=== PATIENT | male | born 1970 | race African-American/Black ===

== ENCOUNTER → 2016-07-23 | Outpatient (CLI) | payer OTHER | LOC: C.OPB 22:33 → C.LAB 22:33 | DX: Z02.83 Encounter for blood-alcohol and blood-drug test (principal) ==

== ENCOUNTER 2016-09-27 11:00 | Emergency (ER) | payer OTHER ==
[~2016-09-27] VITALS: Ht 167.6 cm; Wt 70.1 kg
[2016-09-27 11:01] VITALS: TEMP 36.4; Ht 167.6 cm; Wt 70.1 kg
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
[2016-09-27 11:37] LABS: URINE APPEARANCE CLEAR (CLEAR); URINE BILIRUBIN NEG (NEG); URINE COLOR YELLOW; URINE NITRITE NEG (NEG); URINE SPECIFIC GRAVITY 1.011 (1.000-1.030); UROBILINOGEN NEG (NEG); ZZUR CULT IF INDIC CLEAN CATCH NO
[2016-09-27 11:44] LABS: MANUAL MICROSCOPIC REQUIRED? NO; REVIEW REQ? NO
[2016-09-27 11:49] LABS: BASO % 0.4 %; BASO ABS # 0.02 K/uL (0-0.2); COMPLETE YES; EOS % 1.2 %; HEMATOCRIT 40.8 % (42-52); IG% 0.2 %; LYMPH % 38.9 %; LYMPH ABS # 1.88 K/uL (1.2-3.4); MEAN CELL VOLUME 84.1 fL (80-100); MEAN CORPUSCULAR HEMOGLOBIN 29.5 pg (25-34); MEAN PLATELET VOLUME 9.5 fL (7.4-10.4); MONO % 6.8 %; NEUT % 52.5 %; PLATELET COUNT 320 K/uL (130-400); RED BLOOD COUNT 4.85 M/uL (4.7-6.1); WHITE BLOOD COUNT 4.83 K/uL (4.8-10.8)
[2016-09-27 12:05] LABS: CALCIUM 9.2 mg/dl (8.5-10.1)
[2016-09-27 12:06] LABS: BUN/CREATININE RATIO 7.4 (10-20); CREATININE 1.4 mg/dl (0.60-1.40)
[2016-09-27 12:17] LABS: THYROID STIMULATING HORMONE 1.19 uIu/ml (0.300-4.500)
[2016-09-27 12:17] LABS: BENZODIAZEPINE, URINE NEG (NEG); COCAINE,URINE NEG (NEG); PHENCYCLIDINE, URINE NEG (NEG)
[2016-09-27 12:25] LABS: ACETAMINOPHEN < 2 ug/ml (10-30)
[2016-09-27 14:32] VITALS: BP 151/98; PULSE 62; O2SAT 99
[2016-10-01 14:35] LABS: SYNTHETIC CANNABINOIDS QL URIN NEGATIVE (Negative)
== END 2016-09-27 14:34 ==
LOC: C.EDB 11:01 → C.EDA 14:34
DX: R45.851 Suicidal ideations (principal); Z82.3 Family history of stroke; F12.10 Cannabis abuse, uncomplicated; F32.9 Major depressive disorder, single episode, unspecified; I10 Essential (primary) hypertension; Z86.010 Personal history of colon polyps

== ENCOUNTER 2017-01-20 15:04 | Emergency (ER) | payer SELFPAY ==
[~2017-01-20] VITALS: Ht 167.6 cm; Wt 68.4 kg
[2017-01-20] MEDS ORDERED: LORAZEPAM 1 MG TAB SL STA (15:27)
[2017-01-20] MEDS ORDERED: FAMOTIDINE 20 MG TAB PO STA (15:27)
[2017-01-20 15:32] VITALS: TEMP 37.1; Ht 167.6 cm; Wt 68.4 kg
[2017-01-20 15:33] LABS: BASO % 0.2 %; BASO ABS # 0.01 K/uL (0-0.2); COMPLETE YES; IG% 0.4 %; LYMPH % 36.9 %; LYMPH ABS # 1.88 K/uL (1.2-3.4); MEAN CELL VOLUME 84.3 fL (80-100); MEAN CORPUSCULAR HEMOGLOBIN 31.2 pg (25-34); MEAN PLATELET VOLUME 9.8 fL (7.4-10.4); MONO % 6.1 %; NEUT % 55.4 %; PLATELET COUNT 277 K/uL (130-400); WHITE BLOOD COUNT 5.09 K/uL (4.8-10.8)
[2017-01-20 15:47] LABS: URINE APPEARANCE CLEAR (CLEAR); URINE BILIRUBIN NEG (NEG); URINE COLOR DK YELLOW; URINE NITRITE NEG (NEG); URINE PH 5.5 (4.5-7.5); URINE SPECIFIC GRAVITY 1.019 (1.000-1.030); UROBILINOGEN NEG (NEG)
[2017-01-20 15:51] LABS: MANUAL MICROSCOPIC REQUIRED? NO; REVIEW REQ? NO
[2017-01-20 15:59] LABS: BUN/CREATININE RATIO 7.7 (10-20); CALCIUM 9.1 mg/dl (8.5-10.1); CREATININE 1.6 mg/dl (0.60-1.40); POTASSIUM 4.1 mmol/L (3.5-5.1)
[2017-01-20 16:10] LABS: THYROID STIMULATING HORMONE 0.636 uIu/ml (0.300-4.500)
[2017-01-20 16:15] LABS: BENZODIAZEPINE, URINE NEG (NEG); COCAINE,URINE NEG (NEG); PHENCYCLIDINE, URINE NEG (NEG)
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
[2017-01-20 21:17] VITALS: BP 165/79; PULSE 74; O2SAT 98
== END 2017-01-20 21:21 ==
LOC: EDBD 15:04 → C.EDA 15:05
DX: F39 Unspecified mood [affective] disorder (principal); I10 Essential (primary) hypertension; E11.9 Type 2 diabetes mellitus without complications; F32.9 Major depressive disorder, single episode, unspecified; Z86.010 Personal history of colon polyps; Z98.890 Other specified postprocedural states; Z91.011 Allergy to milk products

== ENCOUNTER 2019-04-20 20:32 | Inpatient (IN) ==
[2019-04-20 21:20] LABS: Appearance Urine Clear (Clear); Bilirubin Urine Negative (Negative); Blood Urine Negative (Negative); Color Urine Yellow; Glucose Urine UA Negative (Negative); Ketones Urine Negative (Negative); Leukocyte Esterase Urine Negative (Negative); Nitrite Urine Negative (Negative); Protein Urine Negative (Negative); Specific Gravity Urine 1.006 (1.000-1.030); Urobilinogen Urine Negative (Negative)
[2019-04-20 21:37] LABS: Amphetamines+Metham, Urine Neg (Neg); Barbiturates, Urine Neg (Neg); Benzodiazepine, Urine Neg (Neg); Cocaine, Urine Neg (Neg); MDMA (Ecstacy), Urine Neg (Neg); Methadone, Urine Neg (Neg); Opiate, Urine Neg (Neg); Phencyclidine, Urine Neg (Neg)
[2019-04-20 21:42] LABS: Hematocrit (blood only) 36.5 % (42-52); Hemoglobin 13.2 g/dL (14.0-18.0); Mean Corpuscular Hemoglobin 31.1 pg (25-34); Mean Corpuscular Hgb Conc 36.2 g/dL (32-36); Mean Corpuscular Volume 85.9 fL (80-100); Mean Platelet Volume 9.8 fL (7.4-10.4); Platelet Count 269 K/uL (130-400); RDW Coefficient of Variation 12.9 % (11.5-14.5); RDW Standard Deviation 40.8 fL (36.4-46.3); Red Blood Count 4.25 M/uL (4.7-6.1); White Blood Count 5.14 K/uL (4.8-10.8)
[2019-04-20 22:01] LABS: Albumin Level 3.6 gm/dl (3.4-5.0); BUN Creatinine Ratio 10.5 (10-20); Calcium 8.6 mg/dl (8.5-10.1); Creatinine Clr Calc Pharmacy 67.4 ml/min; Est GFR (African American) 78.6; Est GFR (Non-African American) 67.8; Potassium 3.8 mmol/L (3.5-5.1)
[2019-04-20 22:10] LABS: Acetaminophen < 2 ug/ml (10-30); Salicylate < 1.7 mg/dl (2.8-20)
[2019-04-20 22:12] LABS: Albumin Globulin Ratio 1.1 (0.9-2); Bilirubin,Total 0.4 mg/dl (0.2-1); Globulin 3.2 gm/dl (2.5-4.0); Thyroid Stimulating Hormone 1.47 uIu/ml (0.300-4.500); Total Protein 6.8 gm/dl (6.4-8.2)
[2019-04-20 22:27] LABS: Basophils # (auto) 0.01 K/uL (0-0.2); Basophils % (auto) 0.2 %; Eosinophils # (auto) 0.05 K/uL (0-0.5); Immature Granulocytes # (auto) 0.01 K/uL (0.00-0.02); Immature Granulocytes % (auto) 0.2 %; Lymphocytes # (auto) 2.61 K/uL (1.2-3.4); Lymphocytes % (auto) 50.8 %; Monocytes # (auto) 0.32 K/uL (0.11-0.59); Monocytes % (auto) 6.2 %; Neutrophils # (auto) 2.14 K/uL (1.4-6.5); Neutrophils % (auto) 41.6 %
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
[2019-04-21] MEDS ORDERED: MAGNESIUM HYDROXIDE SUSP 30 ML UDC PO PRN (02:15)
[2019-04-21] MEDS ORDERED: BISMUTH SUBSALICYLATE PER ML OMNICELL CHARGE PO PRN (02:15)
[2019-04-21] MEDS ORDERED: SODIUM CHLORIDE 0.65% NA SOLN 45 ML (OCEAN) PRN (02:15)
[2019-04-21] MEDS ORDERED: ALUMINUM/MAGNESIUM SUSP 30 ML UDC PO PRN (02:15)
[2019-04-21] MEDS ORDERED: ACETAMINOPHEN 325 MG TAB PO PRN (02:15)
[2019-04-21] MEDS ORDERED: ACETAMINOPHEN 325 MG TAB ONE (02:23)
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
[2019-04-21] MEDS ORDERED: SERTRALINE HCL 50 MG TABLET PO ONE (10:26)
[2019-04-22] MEDS: SERTRALINE HCL 50 MG TABLET PO SCH (09:18)
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
[2019-04-23 07:54] LABS: Estimated Average Glucose 148 mg/dl; Hemoglobin A1C 6.8 % (4.5-5.6)
[2019-04-23] MEDS: SERTRALINE HCL 50 MG TABLET PO SCH (08:59)
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
[2019-04-24] MEDS: SERTRALINE HCL 50 MG TABLET PO SCH (08:52)
--- NOTE | 2019-04-24 09:55 | Discharge Summary ---
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 Medications RF: 0 Discharge Orders: Discharge Order (Routine); Ordered 04/24/19 Ordered By: Keren Hanson Admission Data Admit Date/Time: 04/21/19 01:18 Attending Provider: Izabella Ledezma Admit Provider: Estrella Nolan Primary Care Provider: Oswaldo Solis Other Interventions: Discharge Summary Assessment (RN) Last Done: 04/24/19 11:12 PSY Interdisciplinary Discharge Planning Last Done: 04/24/19 11:14 DC Date/Time DO NOT enter until pt leaves facility: 04/24/19 11:55 Coding Level of Care Code 53651 D/C day mgmt > 30 min Diagnoses Homicidal ideation R45.850 Suicidal ideation R45.851 Depression F33.2 Active/Remission status: currently active Depression Type: major depressive disorder Major depression episode severity: severe Major depression recurrence: recurrent Psychotic features: without psychotic features PTSD (post-traumatic stress disorder) F43.10 Cannabis abuse F12.10 Diabetes E11.9 HTN (hypertension) I10
== END 2019-04-24 11:55 | disposition home or self-care (01) | DRG 885 ==
LOC: ED 20:32 → SUATTDRO 04-21 01:18 → 3S 04-21 01:18

== ENCOUNTER 2022-11-02 04:52 | Observation (INO) ==
[2022-11-02] MEDS ORDERED: NovoLIN-R INSULIN PER UNIT CHARGE IV STA (05:17)
[2022-11-02] MEDS ORDERED: ONDANSETRON INJ 2 MG/ML 2 ML VIAL IV STA (05:17)
[2022-11-02] MEDS ORDERED: SODIUM CHLORIDE 0.9% 1000ML 1,000 ML IV ONE (05:17)
[2022-11-02 05:36] LABS: Basophils # (auto) 0.03 K/uL (0-0.2); Basophils % (auto) 0.3 %; Eosinophils # (auto) 0.02 K/uL (0-0.50); Eosinophils % (auto) 0.2 %; Hematocrit (blood only) 34.7 % (42.0-52.0); Hemoglobin 12.5 g/dl (14.0-18.0); Immature Granulocytes # (auto) 0.03 K/uL (0.01-0.20); Immature Granulocytes % (auto) 0.3 %; Lymphocytes # (auto) 1.36 K/uL (1.2-3.4); Lymphocytes % (auto) 15.4 %; Mean Corpuscular Hemoglobin 29.6 pg (25.0-34.0); Mean Corpuscular Volume 82.2 fL (80.0-100.0); Monocytes # (auto) 0.37 K/uL (0.11-0.59); Monocytes % (auto) 4.2 %; Neutrophils # (auto) 7.01 K/uL (1.40-6.50); Neutrophils % (auto) 79.6 %; Platelet Count 313 K/uL (130-400); RDW Coefficient of Variation 12.1 % (11.5-14.5); RDW Standard Deviation 36.3 fL (36.4-46.3); Red Blood Count 4.22 M/uL (4.70-6.10); White Blood Count 8.82 K/ul (4.8-10.8)
[2022-11-02 05:52] LABS: Albumin Level 3.8 gm/dl (3.4-5.0); Bilirubin,Total 0.4 mg/dl (0.2-1.0); Potassium 4.8 mmol/L (3.5-5.1)
[2022-11-02 06:05] LABS: Albumin Globulin Ratio 1.4 (0.9-2); BUN Creatinine Ratio 15.2 (10-20); Creatinine Clr Calc Pharmacy 52.8 ml/min; Est GFR (African American) 60.2 ml/min; Globulin 2.8 gm/dl (2.5-4.0); Total Protein 6.6 gm/dl (6.0-8.3); Troponin I High Sensitivity 8.4 pg/ml (0-20)
[2022-11-02 06:55] LABS: Appearance Urine Clear (Clear); Bilirubin Urine Negative (Negative); Blood Urine Negative (Negative); Color Urine Yellow; Glucose Urine UA 3+ (Negative); Ketones Urine Negative (Negative); Leukocyte Esterase Urine Negative (Negative); Nitrite Urine Negative (Negative); Protein Urine Negative (Negative); Specific Gravity Urine 1.021 (1.000-1.030); Urobilinogen Urine Negative (Negative); pH Urine 5.5 (4.5-7.5)
--- NOTE | 2022-11-02 07:00 | XRay Report ---
PA CHEST WITH ABDOMINAL SERIES CLINICAL HISTORY: Generalized abdominal pain. FINDINGS: A PA chest radiograph is compared to study dated 01/30/2016. The cardiomediastinal silhouette is unrem arkable. The lungs and pleural spaces are clear. No pneumothorax is seen. The bony thorax is grossly intact. Supine and erect abdominal radiographs are compared to study dated 01/30/2016. There is a nonobstructe d abdominal bowel gas pattern. No evidence of intraperitoneal free air is seen. Moderate fecal retent ion is noted throughout the colon. There are no abnormal abdominal calcifications. The lumbosacral sp ine and bony pelvis appear intact. IMPRESSION: 1. No active disease in the chest. 2. Nonobstructed abdominal bowel gas pattern noting moderate constipation. ACT 112: Negative or not required by law. Electronically signed by: Edward Jose M.D. 11/02/2022 6:58 AM
--- NOTE | 2022-11-02 07:08 | Emergency Department Note ---
Impression & Plan Hyperglycemia due to type 2 diabetes mellitus, Vomiting, Cannabis use disorder, Constipation Admit to the [facility] ED Provider Note NAME: ZENON AREVALO JR AGE: 52 SEX: M ARRIVES VIA: Ambulance INFORMANT: Patient ED PROVIDER(S): Pam Schmid DO CHIEF COMPLAINT: Vomiting PLAN: Disposition: Admit to the [facility] Condition: Guarded MEDICAL DECISION MAKING: This is a 52-year-old male patient who presents to the emergency department with vomiting and constipation. Patient has a history of type 2 diabetes that is uncontrolled. He stopped taking his oral antihyperglycemic's approximately 2 months ago. Patient states that he started vomiting approximately 5 to 6 hours ago after eating brownies that contained marijuana and smoking marijuana. Patient states that he has not had a bowel movement in the past 7 or 8 days which is not unusual for him. Laboratory studies show significant hyperglycemia with blood sugar 462. X-ray is consistent with significant constipation. Sodium is low at 128. Patient's creatinine is elevated at 1.51. Patient appears quite dehydrated on physical exam. He is receiving IV normal saline bolus and drip here in the emergency department and he was bolused with IV insulin. ABG was performed which showed no evidence of acute acidosis but the patient's blood sugar is not well controlled. Patient is still significantly nauseated and not able to drink clear liquids as of yet. I discussed the case with the [facility] and they will evaluate for further management. Triage Nursing notes reviewed and agree with them. External medical records reviewed from the [facility] system Vital Signs: reviewed and remarkable for no significant abnormalities Differential diagnosis: DKA, dehydration, hyperemesis cannabinoid syndrome, medication noncompliance, electrolyte abnormality, UTI, small bowel obstruction ER treatment provided: Cardiac monitoring IV normal saline bolus IV Zofran IV insulin Diagnostics interpreted by me: Cardiac Monitoring: Normal sinus rhythm at 86 Laboratory studies: See below Imaging studies: As per my independent interpretation Obstruction series: No evidence of small bowel obstruction although there was significant colonic fecal retention consistent with constipation HPI: 52/M arrives for evaluation of vomiting. The patient began vomiting approximately 5 to 6 hours ago. He is a diabetic and has not been taking his metformin for the past 2 months. He describes not having a bowel movement for the past 7 or 8 days which is not unusual for him as he suffers from constipation. Patient admits that he ate a brownie which had marijuana in it and had smoked some marijuana a couple of hours ago. The patient has been eating peanut butter and drinking warm water over the past hour. PAST MEDICAL HISTORY:See Below PAST SURGICAL HISTORY:See Below FAMILY HISTORY:See Below SOCIAL HISTORY:See Below HOME MEDICATIONS: None ALLERGIES: See list VITALS:See Below PHYSICAL EXAMINATION: HEENT: Head - normocephalic and atraumatic Pupils are equal, round, and reactive to light. Extraocular eye muscles are intact, and sclera are anicteric. Nose - moist nasal mucosa without discharge. Mouth - extremely dry buccal mucosa. Oropharynx is nonerythematous and there is no tonsillar exudate or edema noted. Neck: Supple; no cervical lymphadenopathy Heart: Regular rate and rhythm. There is a normal S1 and S2 with no murmurs, clicks, or gallops appreciated. Lungs: Clear to auscultation bilaterally with no wheezes, rales, or rhonchi. Abdomen: Soft, completely nontender, nondistended, with good bowel sounds. There are no palpable pulsatile masses or hepatosplenomegaly. There is no gu arding, rigidity, or rebound noted. Extremities: No evidence of cyanosis, clubbing, or edema. There are easily palpable peripheral pulses. Skin: warm and dry with good turgor and no rashes. ED COURSE: Times/Reassessments: The patient was initially evaluated by the medical student. A complete history and physical was performed. An IV lock was initiated and labs were drawn as above. An order was placed for continuous cardiac monitoring. The patient was in a normal sinus rhythm at a rate of 86. He was bolused with IV normal saline solution. He was given a dose of IV Zofran for nausea. He was then bolused with IV insulin. He had an obstruction series performed which showed evidence of constipation. An ABG was performed which showed no evidence of acute acidosis. I discussed the case with the [facility] Hospitalist as the patient remains hyperglycemic and unable to drink clear liquids. Pam Schmid DO Past Med/Surg History Medical History (Updated 11/02/22 @ 19:18 by Pam Schmid DO) Cannabis abuse Depression Diabetes H. pylori infection HTN (hypertension) PTSD (post-traumatic stress disorder) Surgical History History of appendectomy Social History Smoking Status: Current every day smoker Hx Alcohol Use: No Hx Substance Use: Yes Last Used Substance: Days (ago) Preferred Language: Samoan Communication Ability: Effective Permit Specialist Required: No Beliefs That Will Affect Care: None Current Living Situation: Alone Feels Safe at Home: Yes Safety Concerns: Feels Safe At This Time Assistive Devices: Glasses Allergies Allergies Allergy/AdvReac Type Severity Reaction Status Date / Time lactose AdvReac Mild Nausea Verified 11/02/21 01:47 Home Meds Home Medications Medication Instructions Recorded Confirmed No Known Home Medications 11/02/22 11/02/22 Results & Data (ED) Vital Signs Vital Signs - 24 hr 11/02/22 05:16 11/02/22 05:00 11/02/22 05:15 Temperature 36.8 C Temperature Source Oral Pulse Rate 95 H Pulse Rate [Finger] 90 Pulse Rhythm [Finger] Regular Respiratory Rate 18 Respiratory Effort / Characteristics Non-Labored Respiratory Depth Normal Respiratory Pattern Regular Blood Pressure Blood Pressure [Right Arm] 143/90 H Blood Pressure Mean Blood Pressure Mean [Right Arm] 107 Blood Pressure Position [Right Arm] Lying Pulse Oximetry 97 97 Oxygen Delivery Method Room Air Room Air Sepsis Recent Fever Within 48 Hours Sepsis New/Unexplained Change in Mental Status Sepsis Action Taken by Nursing 11/02/22 05:00 11/02/22 05:37 11/02/22 06:00 Temperature Temperature Source Pulse Rate 90 90 Pulse Rate [Finger] Pulse Rhythm [Finger] Respiratory Rate 24 20 Respiratory Effort / Characteristics Respiratory Depth Respiratory Pattern Blood Pressure 157/98 H 156/91 H Blood Pressure [Right Arm] Blood Pressure Mean 109 119 Blood Pressure Mean [Right Arm] Blood Pressure Position [Right Arm] Pulse Oximetry 97 99 99 Oxygen Delivery Method Room Air Room Air Room Air Sepsis Recent Fever Within 48 Hours No Sepsis New/Unexplained Change in Mental Status No Sepsis Action Taken by Nursing No Action Required 11/02/22 06:30 11/02/22 07:00 11/02/22 07:30 Temperature Temperature Source Pulse Rate 93 H 84 95 H Pulse Rate [Finger] Pulse Rhythm [Finger] Respiratory Rate 20 23 27 H Respiratory Effort / Characteristics Respiratory Depth Respiratory Pattern Blood Pressure 178/111 H 147/92 H 160/103 H Blood Pressure [Right Arm] Blood Pressure Mean 133 110 122 Blood Pressure Mean [Right Arm] Blood Pressure Position [Right Arm] Pulse Oximetry 99 99 100 Oxygen Delivery Method Room Air Room Air Room Air Sepsis Recent Fever Within 48 Hours Sepsis New/Unexplained Change in Mental Status Sepsis Action Taken by Nursing Laboratory Data 11/02/22 05:15 11/02/22 05:15 Lab Results 11/02/22 11/02/22 11/02/22 Range/Units 04:57 05:15 05:15 WBC 8.82 (4.8-10.8) K/ul RBC 4.22 L (4.70-6.10) M/uL Hgb 12.5 L (14.0-18.0) g/dl Hct 34.7 L (42.0-52.0) % MCV 82.2 (80.0-100.0) fL MCH 29.6 (25.0-34.0) pg MCHC 36.0 (32.0-36.0) g/dL RDW Std Deviation 36.3 L (36.4-46.3) fL RDW Coeff of Gertrudis 12.1 (11.5-14.5) % Plt Count 313 (130-400) K/uL MPV 10.0 (9.4-12.4) fL Immature Gran % (Auto) 0.3 % Neut % (Auto) 79.6 % Lymph % (Auto) 15.4 % Mitchell % (Auto) 4.2 % Eos % (Auto) 0.2 % Baso % (Auto) 0.3 % Neut # (Auto) 7.01 H (1.40-6.50) K/uL Lymph # (Auto) 1.36 (1.2-3.4) K/uL Mitchell # (Auto) 0.37 (0.11-0.59) K/uL Eos # (Auto) 0.02 (0-0.50) K/uL Baso # (Auto) 0.03 (0-0.2) K/uL Immature Gran # (Auto) 0.03 (0.01-0.20) K/uL ABG pH (7.35-7.45) ABG pCO2 (35-46) mmHg ABG pO2 (80-95) mmHg ABG HCO3 (19-24) mmol/L ABG O2 Saturation (90-95) % ABG Base Excess (-9-1.8) mEq/L Louis Test (Pos) Oxygen Given Sodium 128 L (136-145) mmol/L Potassium 4.8 (3.5-5.1) mmol/L Chloride 95 L (98-107) mmol/L Carbon Dioxide 27 (21-32) mmol/L Anion Gap 6 (3-11) BUN 23 (6-23) mg/dl Creatinine 1.51 H (0.6-1.4) mg/dl Est Cr Clr Drug Dosing 52.8 ml/min Est GFR ( Amer) 60.2 ml/min Est GFR (Non-Af Amer) 52.0 ml/min BUN/Creatinine Ratio 15.2 (10-20) Glucose 462 H* (70-99(Fasting)) mg/dl POC Glucose 489 H* (70-99) mg/dl Calcium 9.0 (8.6-10.3) mg/dl Magnesium 1.7 (1.7-2.4) mg/dl Total Bilirubin 0.4 (0.2-1.0) mg/dl AST 25 (13-39) U/L ALT 28 (7-52) U/L Alkaline Phosphatase 104 (34-104) U/L Troponin I High Sens 8.4 (0-20) pg/ml Total Protein 6.6 (6.0-8.3) gm/dl Albumin 3.8 (3.4-5.0) gm/dl Globulin 2.8 (2.5-4.0) gm/dl Albumin/Globulin Ratio 1.4 (0.9-2) Lipase 9 L (11-82) U/L Urine Color Urine Appearance (Clear) Urine pH (4.5-7.5) Ur Specific [place] (1.000-1.030) Urine Protein (Negative) Urine Glucose (UA) (Negative) Urine Ketones (Negative) Urine Blood (Negative) Urine Nitrite (Negative) Urine Bilirubin (Negative) Urine Urobilinogen (Negative) Ur Leukocyte Esterase (Negative) 11/02/22 11/02/22 11/02/22 Range/Units 06:30 06:43 07:25 WBC (4.8-10.8) K/ul RBC (4.70-6.10) M/uL Hgb (14.0-18.0) g/dl Hct (42.0-52.0) % MCV (80.0-100.0) fL MCH (25.0-34.0) pg MCHC (32.0-36.0) g/dL RDW Std Deviation (36.4-46.3) fL RDW Coeff of Gertrudis (11.5-14.5) % Plt Count (130-400) K/uL MPV (9.4-12.4) fL Immature Gran % (Auto) % Neut % (Auto) % Lymph % (Auto) % Mitchell % (Auto) % Eos % (Auto) % Baso % (Auto) % Neut # (Auto) (1.40-6.50) K/uL Lymph # (Auto) (1.2-3.4) K/uL Mitchell # (Auto) (0.11-0.59) K/uL Eos # (Auto) (0-0.50) K/uL Baso # (Auto) (0-0.2) K/uL Immature Gran # (Auto) (0.01-0.20) K/uL ABG pH 7.39 (7.35-7.45) ABG pCO2 46 (35-46) mmHg ABG pO2 93 (80-95) mmHg ABG HCO3 28 H (19-24) mmol/L ABG O2 Saturation 99.4 H (90-95) % ABG Base Excess 2.2 H (-9-1.8) mEq/L Louis Test POS (Pos) Oxygen Given ROOM AIR Sodium (136-145) mmol/L Potassium (3.5-5.1) mmol/L Chloride (98-107) mmol/L Carbon Dioxide (21-32) mmol/L Anion Gap (3-11) BUN (6-23) mg/dl Creatinine (0.6-1.4) mg/dl Est Cr Clr Drug Dosing ml/min Est GFR ( Amer) ml/min Est GFR (Non-Af Amer) ml/min BUN/Creatinine Ratio (10-20) Glucose (70-99(Fasting)) mg/dl POC Glucose 204 H (70-99) mg/dl Calcium (8.6-10.3) mg/dl Magnesium (1.7-2.4) mg/dl Total Bilirubin (0.2-1.0) mg/dl AST (13-39) U/L ALT (7-52) U/L Alkaline Phosphatase (34-104) U/L Troponin I High Sens (0-20) pg/ml Total Protein (6.0-8.3) gm/dl Albumin (3.4-5.0) gm/dl Globulin (2.5-4.0) gm/dl Albumin/Globulin Ratio (0.9-2) Lipase (11-82) U/L Urine Color Yellow Urine Appearance Clear (Clear) Urine pH 5.5 (4.5-7.5) Ur Specific [place] 1.021 (1.000-1.030) Urine Protein Negative (Negative) Urine Glucose (UA) 3+ H (Negative) Urine Ketones Negative (Negative) Urine Blood Negative (Negative) Urine Nitrite Negative (Negative) Urine Bilirubin Negative (Negative) Urine Urobilinogen Negative (Negative) Ur Leukocyte Esterase Negative (Negative) Administered Medications Heparin Sodium (Porcine) (Heparin Sod 5,000 Unit/0.5 Ml Vial) 5,000 units SQ Q8 SUZETTE Stop: 12/02/22 13:59 Last Admin: 11/02/22 15:55 Dose: Not Given Documented By: JENNIFER Sodium Chloride (Nss 1000ml) 1,000 mls @ 125 mls/hr IV .Q8H [facility] Stop: 12/02/22 17:44 Last Admin: 11/02/22 18:28 Dose: 125 mls/hr Documented By: DARIA Insulin Aspart (Insulin Aspart Per Unit Charge) 0 units SC ACHS [facility]; Protocol Stop: 12/02/22 11:44 Last Admin: 11/02/22 18:28 Dose: 7 units Documented By: DARIA Co-signed By: LINDSEY Admin: 11/02/22 13:11 Dose: 14 units Documented By: JENNIFER Co-signed By: JOEL Insulin Glargine (Lantus Per Unit Charge) 10 units SQ BID [facility]; Protocol Stop: 12/02/22 11:44 Last Admin: 11/02/22 12:03 Dose: 10 units Documented By: JENNIFER Co-signed By: JOEL Polyethylene Glycol (Polyethylene (Miralax) 17 Gm Pack) 17 gm PO BID [facility] Stop: 12/02/22 11:29 Last Admin: 11/02/22 12:02 Dose: 17 gm Documented By: JENNIFER Discontinued Medications Sodium Chloride (Nss 1000ml) 1,000 mls @ 999 mls/hr IV .Q1H1M ONE Stop: 11/02/22 06:17 Last Infusion: 11/02/22 06:50 Dose: 0 mls/hr Documented By: Admin: 11/02/22 05:29 Dose: 999 mls/hr Documented By: COLIN Sodium Chloride (Nss) 500 mls @ 125 mls/hr IV .Q4H SUZETTE Stop: 12/02/22 07:14 Last Admin: 11/02/22 17:36 Dose: Not Given Documented By: Infusion: 11/02/22 17:36 Dose: 0 mls/hr Documented By: Admin: 11/02/22 12:03 Dose: 125 mls/hr Documented By: Infusion: 11/02/22 12:02 Dose: 0 mls/hr Documented By: Admin: 11/02/22 07:28 Dose: 125 mls/hr Documented By: NATASHA Insulin Human Regular (Novolin-R Insulin Per Unit Charge) 10 units IV NOW STA Stop: 11/02/22 05:18 Last Admin: 11/02/22 05:29 Dose: 10 units Documented By: COLIN Co-signed By: DML Magnesium Hydroxide (Magnesium Hydroxide Susp 30 Ml Udc) 30 ml PO NOW ONE Stop: 11/02/22 11:21 Last Admin: 11/02/22 12:01 Dose: 30 ml Documented By: JENNIFER Ondansetron HCl (Ondansetron Inj 2 Mg/Ml 2 Ml Vial) 4 mg IV NOW STA Stop: 11/02/22 05:18 Last Admin: 11/02/22 05:29 Dose: 4 mg Documented By: COLIN Imaging Data Radiologist's Impression: Chest/Abdomen X-ray 11/02/22 05:56 PA CHEST WITH ABDOMINAL SERIES CLINICAL HISTORY: Generalized abdominal pain. FINDINGS: A PA chest radiograph is compared to study dated 01/30/2016. The cardiomediastinal silhouette is unremarkable. The lungs and pleural spaces are clear. No pneumothorax is seen. The bony thorax is grossly intact. Supine and erect abdominal radiographs are compared to study dated 01/30/2016. There is a nonobstructed abdominal bowel gas pattern. No evidence of intraperitoneal free air is seen. Moderate fecal retention is noted throughout the colon. There are no abnormal abdominal calcifications. The lumbosacral spine and bony pelvis appear intact. IMPRESSION: 1. No active disease in the chest. 2. Nonobstructed abdominal bowel gas pattern noting moderate constipation. ACT 112: Negative or not required by law. Electronically signed by: Edward Jose M.D. 11/02/2022 6:58 AM Discharge Plan Visit Data Chief Complaint: Vomiting Stated Complaint: VOMITING/HYPERGLYCEMIC ED Provider: Pam Schmid Discharge Problem: Hyperglycemia due to type 2 diabetes mellitus, Vomiting, Cannabis use disorder, Constipation Patient Disposition: Admitted As Inpatient Discharge Instructions Interventions: ED Discharge Assessment Last Done: 11/02/22 10:59 Hyperglycemia due to type 2 diabetes mellitus Qualifiers: Diabetes mellitus correction insulin use: without correction use Qualified Code(s): E11.65 - Type 2 diabetes mellitus with hyperglycemia Vomiting Qualifiers: Vomiting type: unspecified
[2022-11-02] MEDS: SODIUM CHLORIDE 0.9% 500 ML IV SCH ×3 (07:28→17:36)
[2022-11-02 07:33] LABS: Base Excess ABG 2.2 mEq/L (-9-1.8); HCO3 ABG 28 mmol/L (19-24); Oxygen Saturation ABG 99.4 % (90-95); PCO2 ABG 46 mmHg (35-46); PO2 ABG 93 mmHg (80-95); pH ABG 7.39 (7.35-7.45)
[2022-11-02 07:34] LABS: Allen Test POS (Pos)
[2022-11-02] MEDS ORDERED: GLUCOSE 10 TAB/TUBE PO PRN (11:20)
[2022-11-02] MEDS ORDERED: GLUCAGON FOR INJ 1 MG VIAL SQ PRN (11:20)
[2022-11-02] MEDS ORDERED: PHARMACY GLYCEMIC MGMT CONSULT PRN (11:20)
[2022-11-02] MEDS ORDERED: CARBOHYDRATES FOR HYPOGLYCEMIA PO PRN (11:20)
[2022-11-02] MEDS ORDERED: DEXTROSE 50% 50 ML SYRINGE IV PRN (11:20)
[2022-11-02] MEDS ORDERED: MAGNESIUM HYDROXIDE SUSP 30 ML UDC PO ONE (11:20)
[2022-11-02] MEDS ORDERED: GLUCOSE 40% GEL 15 GM TUBE PO PRN (11:20)
[2022-11-02] MEDS ORDERED: ONDANSETRON INJ 2 MG/ML 2 ML VIAL IV PRN (11:20)
[2022-11-02 11:59] LABS: Magnesium 1.7 mg/dl (1.7-2.4)
[2022-11-02] MEDS: POLYETHYLENE (MIRALAX) 17 GM PACK PO SCH ×2 (12:02→21:18)
[2022-11-02] MEDS: LANTUS PER UNIT CHARGE SQ SCH ×2 (12:03→21:18)
--- NOTE | 2022-11-02 12:18 | Pharmacy Report ---
Pharmacy Glycemic Short Note 2 - Date of Service November 02, 2022 - Glycemic Short BSG Results (Last 24 hours): 11/02/22 11/02/22 11/02/22 04:57 05:15 06:43 Glucose 462 H* POC Glucose 489 H* 204 H 11/02/22 11:53 Glucose POC Glucose 295 H OUTPATIENT ANTIDIABETIC REGIMEN: * Metformin ER 500 mg PO BIDM * Jardiance 25 mg PO AM * HbA1c pending * Last was 9.8% in May of 2021 per [facility] records ASSESSMENT: * 52 yo M admitted on 11/02/22 secondary to vomiting and constipation. Pharmacy has been consulted to assist with inpatient glycemic management. Patient is a poorly controlled Type 2 diabetic as an outpatient. Please refer to outpatient regimen and most recent HbA1c above. * Upon arrival to ED, BSG was 489 mg/dL. Suspect noncompliance with all outpatient medications including antidiabetics. BSG improved to 204 mg/dL with the administration of 10 units IV insulin. However, BSG back up to 295 mg/dL upon transfer to the floor. early childhood educator aide has been consulted. * Will start Lantus at ~0.3 units/kg/day to start. Novolog will be started based on weight/stress of 3. PLAN FOR INPATIENT GLYCEMIC CONTROL: * Hold outpatient oral diabetes medications * Basal insulin * Lantus 10 units SC BID * Bolus insulin * NovoLog per scale ACHS * Goal Range: Low 110 mg/dL - High 140 mg/dL * Correction Factor: 25 mg/dL/unit * Nutritional / Prandial insulin per carb ratio of 1 unit per 8 grams CHO consumed
[2022-11-02] MEDS: INSULIN ASPART PER UNIT CHARGE SC SCH ×3 (13:11→21:04)
--- NOTE | 2022-11-02 14:47 | History & Physical Report ---
Date of Service November 02, 2022 Assessment & Plan (1) Gastroenteritis: (2) Type 2 diabetes mellitus: (3) Constipation: Plan: Past medical history of type 2 diabetes mellitus (last A1c of 9.8% in May 2021), hypertension, chronic idiopathic constipation, gastroparesis, hemorrhoids. Noncompliant with medication Patient presents to the ED nausea and vomiting starting today. Patient reports that he made homemade brownies infused with marijuana and he started to have nausea, vomiting. Vomitus contained food particles; denies any blood. Lab work was remarkable for hyperglycemia with blood glucose of 462 and creatinine of 1.51. Sodium was 128, corrected sodium of 134. Abdominal x-ray showed nonobstructive bowel gas pattern with moderate constipation. Supportive care with IV hydration, Zofran Started on enema, MiraLAX twice daily and milk of magnesia for bowel regimen On glargine and NovoLog for type 2 diabetes mellitus. Obtain A1c in a.m. health educator (4) Acute kidney injury superimposed on CKD: Plan: Creatinine of 1.51 on admission; baseline around 1.2-1.3 Need to rule out progressive CKD versus IVON on CKD Repeat BMP tomorrow a.m., continue IV hydration Obtain urinalysis, protein creatinine ratio Plan DVT prophylaxis heparin DispoHome after resolution of medical issues Time spent evaluating patient, direct bedside care, chart review, placing orders, interpretation of diagnostic studies, discussion with consultants, patient, and family members, as well as other required patient management activities is 88 minutes Please note the above document was generated using voice recognition software. It may contain grammatical, syntax or spelling errors. Any formal questions or concerns about the content, text or information contained within the body of this dictation should be directly addressed to the provider for clarification Admission and Anticipated Discharge Date Admission Date: November 02, 2022 History of Present Illness Chief Complaint: Nausea vomiting for 1 day Primary Care Provider: Oswaldo Solis MD History obtained from chart review and interview with the patient. Past medical history of type 2 diabetes mellitus (last A1c of 9.8% in May 2021), hypertension, chronic idiopathic constipation, gastroparesis, hemorrhoids. Noncompliant with medication Patient presents to the ED nausea and vomiting starting today. Patient reports that he made homemade brownies infused with marijuana and he started to have nausea, vomiting. Vomitus contained food particles; denies any blood. He also reports constipation; reports his last bowel movement is 7 days ago. Reports that he requires enema for the constipation. He reports that he stopped taking medications several months ago. He reports that he used to be on Jardiance and metformin. Also, on lisinopril 10 mg for hypertension. On presentation to the ED, patient was afebrile, normotensive and saturating well on room air. Lab work was remarkable for hyperglycemia with blood glucose of 462 and creatinine of 1.51. Sodium was 128, corrected sodium of 134. Patient was given IV insulin 10 units, Zofran and IV fluids. Abdominal x-ray showed nonobstructive bowel gas pattern with moderate constipation. Past medical history; as above Surgical history; last colonoscopy in 2021; no polyps. Repeat in 2024. Family history; mother with diabetes, hypertension. Denies alcohol use, smoking. Uses marijuana Allergies Allergy/AdvReac Type Severity Reaction Status Date / Time lactose AdvReac Mild Nausea Verified 11/02/21 01:47 Home Medications Medication Instructions Recorded Confirmed Type No Known Home Medications 11/02/22 11/02/22 History Past Med/Surg History Medical History (Updated 11/02/22 @ 14:54 by Fili Cbeallos MD) Cannabis abuse Depression Diabetes H. 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 Normal insp/exp effort, no accessory muscle use Cardiovascular: RRR, no murmur, no edema Vessels: no JVD or carotid bruit Chest: normal inspection of chest Abdomen: Slightly distended, nontender. Bowel sounds are present Musculoskeletal: no cyanosis or clubbing, extremities motor strength 5/5 Skin: no rashes, warm and dry normal turgor Neurologic: PERRL, EOMI, accommodation nl, no face palsy, no dysarthria CN's II- XI intact bilaterally and moves all extremities Psychiatric: A+Ox3, euthymic affect Results & Data Results & Data Vital Signs (Past 12 Hours) Vital Signs Temp Pulse Pulse Resp BP BP Pulse Ox 11/02/22 11:20 36.5 C 53 L 16 117/75 99 11/02/22 10:50 72 18 132/80 97 11/02/22 09:30 66 19 127/80 96 11/02/22 09:00 80 21 126/72 96 11/02/22 09:03 74 11/02/22 08:30 82 20 121/71 100 11/02/22 08:00 77 21 146/97 H 100 11/02/22 07:30 95 H 27 H 160/103 H 100 11/02/22 07:00 84 23 147/92 H 99 11/02/22 06:30 93 H 20 178/111 H 99 11/02/22 06:00 90 20 156/91 H 99 11/02/22 05:37 90 24 157/98 H 99 11/02/22 05:00 97 11/02/22 05:15 97 11/02/22 05:00 36.8 C 90 18 143/90 H 97 11/02/22 05:16 95 H O2 Del Method 11/02/22 11:20 Room Air 11/02/22 10:50 Room Air 11/02/22 09:30 Room Air 11/02/22 09:00 Room Air 11/02/22 09:03 11/02/22 08:30 Room Air 11/02/22 08:00 Room Air 11/02/22 07:30 Room Air 11/02/22 07:00 Room Air 11/02/22 06:30 Room Air 11/02/22 06:00 Room Air 11/02/22 05:37 Room Air 11/02/22 05:00 Room Air 11/02/22 05:15 Room Air 11/02/22 05:00 Room Air 11/02/22 05:16 Laboratory Results Laboratory Results WBC 8.82 K/ul (4.8-10.8) 11/02/22 05:15 RBC 4.22 M/uL (4.70-6.10) L 11/02/22 05:15 Hgb 12.5 g/dl (14.0-18.0) L 11/02/22 05:15 Hct 34.7 % (42.0-52.0) L 11/02/22 05:15 MCV 82.2 fL (80.0-100.0) 11/02/22 05:15 MCH 29.6 pg (25.0-34.0) 11/02/22 05:15 MCHC 36.0 g/dL (32.0-36.0) 11/02/22 05:15 RDW Std Deviation 36.3 fL (36.4-46.3) L 11/02/22 05:15 RDW Coeff of Gertrudis 12.1 % (11.5-14.5) 11/02/22 05:15 Plt Count 313 K/uL (130-400) 11/02/22 05:15 MPV 10.0 fL (9.4-12.4) 11/02/22 05:15 Immature Gran % (Auto) 0.3 % 11/02/22 05:15 Neut % (Auto) 79.6 % 11/02/22 05:15 Lymph % (Auto) 15.4 % 11/02/22 05:15 [place] % (Auto) 4.2 % 11/02/22 05:15 Eos % (Auto) 0.2 % 11/02/22 05:15 Baso % (Auto) 0.3 % 11/02/22 05:15 Neut # (Auto) 7.01 K/uL (1.40-6.50) H 11/02/22 05:15 Lymph # (Auto) 1.36 K/uL (1.2-3.4) 11/02/22 05:15 [place] # (Auto) 0.37 K/uL (0.11-0.59) 11/02/22 05:15 Eos # (Auto) 0.02 K/uL (0-0.50) 11/02/22 05:15 Baso # (Auto) 0.03 K/uL (0-0.2) 11/02/22 05:15 Immature Gran # (Auto) 0.03 K/uL (0.01-0.20) 11/02/22 05:15 ABG pH 7.39 (7.35-7.45) 11/02/22 07:25 ABG pCO2 46 mmHg (35-46) 11/02/22 07:25 ABG pO2 93 mmHg (80-95) 11/02/22 07:25 ABG HCO3 28 mmol/L (19-24) H 11/02/22 07:25 ABG O2 Saturation 99.4 % (90-95) H 11/02/22 07:25 ABG Base Excess 2.2 mEq/L (-9-1.8) H 11/02/22 07:25 Louis Test POS (Pos) 11/02/22 07:25 Oxygen Given ROOM AIR 11/02/22 07:25 Sodium 128 mmol/L (136-145) L 11/02/22 05:15 Potassium 4.8 mmol/L (3.5-5.1) 11/02/22 05:15 Chloride 95 mmol/L (98-107) L 11/02/22 05:15 Carbon Dioxide 27 mmol/L (21-32) 11/02/22 05:15 Anion Gap 6 (3-11) 11/02/22 05:15 BUN 23 mg/dl (6-23) 11/02/22 05:15 Creatinine 1.51 mg/dl (0.6-1.4) H 11/02/22 05:15 Est Cr Clr Drug Dosing 52.8 ml/min 11/02/22 05:15 Est GFR ( Amer) 60.2 ml/min 11/02/22 05:15 Est GFR (Non-Af Amer) 52.0 ml/min 11/02/22 05:15 BUN/Creatinine Ratio 15.2 (10-20) 11/02/22 05:15 Glucose 462 mg/dl (70-99(Fasting)) H* 11/02/22 05:15 POC Glucose 295 mg/dl (70-99) H 11/02/22 11:53 Calcium 9.0 mg/dl (8.6-10.3) 11/02/22 05:15 Magnesium 1.7 mg/dl (1.7-2.4) 11/02/22 05:15 Total Bilirubin 0.4 mg/dl (0.2-1.0) 11/02/22 05:15 AST 25 U/L (13-39) 11/02/22 05:15 ALT 28 U/L (7-52) 11/02/22 05:15 Alkaline Phosphatase 104 U/L (34-104) 11/02/22 05:15 Troponin I High Sens 8.4 pg/ml (0-20) 11/02/22 05:15 Total Protein 6.6 gm/dl (6.0-8.3) 11/02/22 05:15 Albumin 3.8 gm/dl (3.4-5.0) 11/02/22 05:15 Globulin 2.8 gm/dl (2.5-4.0) 11/02/22 05:15 Albumin/Globulin Ratio 1.4 (0.9-2) 11/02/22 05:15 Lipase 9 U/L (11-82) L 11/02/22 05:15 Urine Color Yellow 11/02/22 06:30 Urine Appearance Clear (Clear) 11/02/22 06:30 Urine pH 5.5 (4.5-7.5) 11/02/22 06:30 Ur Specific [place] 1.021 (1.000-1.030) 11/02/22 06:30 Urine Protein Negative (Negative) 11/02/22 06:30 Urine Glucose (UA) 3+ (Negative) H 11/02/22 06:30 Urine Ketones Negative (Negative) 11/02/22 06:30 Urine Blood Negative (Negative) 11/02/22 06:30 Urine Nitrite Negative (Negative) 11/02/22 06:30 Urine Bilirubin Negative (Negative) 11/02/22 06:30 Urine Urobilinogen Negative (Negative) 11/02/22 06:30 Ur Leukocyte Esterase Negative (Negative) 11/02/22 06:30 SARS-CoV-2, RNA, NAAT NEGATIVE (NEGATIVE) 11/02/22 08:43 Impressions Chest/Abdomen X-ray 11/02/22 05:56 PA CHEST WITH ABDOMINAL SERIES CLINICAL HISTORY: Generalized abdominal pain. FINDINGS: A PA chest radiograph is compared to study dated 01/30/2016. The cardiomediastinal silhouette is unremarkable. The lungs and pleural spaces are clear. No pneumothorax is seen. The bony thorax is grossly intact. Supine and erect abdominal radiographs are compared to study dated 01/30/2016. There is a nonobstructed abdominal bowel gas pattern. No evidence of intraperitoneal free air is seen. Moderate fecal retention is noted throughout the colon. There are no abnormal abdominal calcifications. The lumbosacral spine and bony pelvis appear intact. IMPRESSION: 1. No active disease in the chest. 2. Nonobstructed abdominal bowel gas pattern noting moderate constipation. ACT 112: Negative or not required by law. Electronically signed by: Edward Jose M.D. 11/02/2022 6:58 AM Code Status & VTE Plan VTE Prophylaxis Plan VTE Prophylaxis will be ordered: Yes
[2022-11-02] MEDS: HEPARIN SOD 5,000 UNIT/0.5 ML VIAL SQ SCH ×2 (15:55→21:18)
[2022-11-02 17:07] LABS: Appearance Urine Clear (Clear); Bilirubin Urine Negative (Negative); Blood Urine Negative (Negative); Color Urine Yellow; Glucose Urine UA 3+ (Negative); Ketones Urine Negative (Negative); Leukocyte Esterase Urine Negative (Negative); Nitrite Urine Negative (Negative); Protein Urine Negative (Negative); Urobilinogen Urine Negative (Negative); pH Urine 6.5 (4.5-7.5)
[2022-11-02 18:03] LABS: Total Protein Urine Random < 4.0 mg/dl (0-11.9)
[2022-11-02 18:19] LABS: Creatinine Urine Random 39.7 mg/dl
[2022-11-02] MEDS: SODIUM CHLORIDE 0.9% 1000ML 1,000 ML IV SCH (18:28)
[2022-11-02] MEDS ORDERED: Nursing to Pharmacy Communication SCH (22:30)
[2022-11-03] MEDS: SODIUM CHLORIDE 0.9% 1000ML 1,000 ML IV SCH (02:10)
[2022-11-03] MEDS: HEPARIN SOD 5,000 UNIT/0.5 ML VIAL SQ SCH ×2 (05:24→14:24)
[2022-11-03 06:56] LABS: Basophils # (auto) 0.05 K/uL (0-0.2); Basophils % (auto) 0.7 %; Eosinophils % (auto) 1.4 %; Estimated Average Glucose 283 mg/dl; Hematocrit (blood only) 33.1 % (42.0-52.0); Hemoglobin 11.4 g/dl (14.0-18.0); Hemoglobin A1C 11.5 % (4.5-5.6); Immature Granulocytes # (auto) 0.01 K/uL (0.01-0.20); Immature Granulocytes % (auto) 0.1 %; Lymphocytes # (auto) 2.95 K/uL (1.2-3.4); Lymphocytes % (auto) 40.8 %; Mean Corpuscular Hgb Conc 34.4 g/dL (32.0-36.0); Mean Corpuscular Volume 84.2 fL (80.0-100.0); Mean Platelet Volume 9.9 fL (9.4-12.4); Monocytes % (auto) 5.5 %; Neutrophils # (auto) 3.72 K/uL (1.40-6.50); Neutrophils % (auto) 51.5 %; Platelet Count 292 K/uL (130-400); RDW Coefficient of Variation 12.4 % (11.5-14.5); RDW Standard Deviation 37.7 fL (36.4-46.3); Red Blood Count 3.93 M/uL (4.70-6.10); White Blood Count 7.23 K/ul (4.8-10.8)
[2022-11-03 07:11] LABS: Albumin Globulin Ratio 1.5 (0.9-2); Albumin Level 3.1 gm/dl (3.4-5.0); BUN Creatinine Ratio 12.7 (10-20); Bilirubin,Total 0.4 mg/dl (0.2-1.0); Calcium 8.3 mg/dl (8.6-10.3); Creatinine Clr Calc Pharmacy 53.2 ml/min; Est GFR (African American) 60.7 ml/min; Est GFR (Non-African American) 52.4 ml/min; Globulin 2.1 gm/dl (2.5-4.0); Potassium 3.9 mmol/L (3.5-5.1); Total Protein 5.2 gm/dl (6.0-8.3)
[2022-11-03] MEDS: INSULIN ASPART PER UNIT CHARGE SC SCH ×2 (08:40→12:47)
[2022-11-03] MEDS: POLYETHYLENE (MIRALAX) 17 GM PACK PO SCH (08:47)
[2022-11-03] MEDS ORDERED: LANTUS PER UNIT CHARGE SC SCH (09:00)
--- NOTE | 2022-11-03 10:01 | Pharmacy Report ---
Pharmacy Glycemic Short Note 2 - Date of Service November 03, 2022 - Glycemic Short BSG Results (Last 24 hours): 11/02/22 11/02/22 11/02/22 11:53 17:12 17:14 Glucose POC Glucose 295 H 69 L* 78 11/02/22 11/03/22 11/03/22 20:29 06:23 08:01 Glucose 82 POC Glucose 127 H 79 OUTPATIENT ANTIDIABETIC REGIMEN: * Metformin ER 500 mg PO BIDM * Jardiance 25 mg PO AM * HbA1c pending * Last was 9.8% in May of 2021 per [facility] records ASSESSMENT: 11/03: * Patient received 51 units of insulin yesterday, 20 units basal + 31 units bolus. BSGs ranged from 78 - 489 mg/dL. * Fasting BSG low this AM at 79 mg/dL. Will hold any further basal insulin this morning and monitor BSGs throughout the day. May need a small dose at bedtime. * Also loosened Novolog parameters given significant trend down in postprandial BSG yesterday. Stressors remain stable. 11/02: * 52 yo M admitted on 11/02/22 secondary to vomiting and constipation. Pharmacy has been consulted to assist with inpatient glycemic management. Patient is a poorly controlled Type 2 diabetic as an outpatient. Please refer to outpatient regimen and most recent HbA1c above. * Upon arrival to ED, BSG was 489 mg/dL. Suspect noncompliance with all outpatient medications including antidiabetics. BSG improved to 204 mg/dL with the administration of 10 units IV insulin. However, BSG back up to 295 mg/dL upon transfer to the floor. binder roller has been consulted. * Will start Lantus at ~0.3 units/kg/day to start. Novolog will be started based on weight/stress of 3. PLAN FOR INPATIENT GLYCEMIC CONTROL: * Hold outpatient oral diabetes medications * Basal insulin * Hold * May need a small HS dose tonight - if so, recommend 10 units * Bolus insulin * NovoLog per scale ACHS * Goal Range: Low 110 mg/dL - High 140 mg/dL * Correction Factor: 30 mg/dL/unit * Nutritional / Prandial insulin per carb ratio of 1 unit per 10 grams CHO consumed
--- NOTE | 2022-11-03 15:04 | Discharge Summary ---
Date of Service November 03, 2022 Admission HPI Per Admitting Provider History obtained from chart review and interview with the patient. Past medical history of type 2 diabetes mellitus (last A1c of 9.8% in May 2021), hypertension, chronic idiopathic constipation, gastroparesis, hemo rrhoids. Noncompliant with medication Patient presents to the ED nausea and vomiting starting today. Patient reports that he made homemade brownies infused with marijuana and he started to have nausea, vomiting. Vomitus contained food particles; denies any blood. He also reports constipation; reports his last bowel movement is 7 days ago. Reports that he requires enema for the constipation. He reports that he stopped taking medications several months ago. He reports that he used to be on Jardiance and metformin. Also, on lisinopril 10 mg for hypertension. On presentation to the ED, patient was afebrile, normotensive and saturating well on room air. Lab work was remarkable for hyperglycemia with blood glucose of 462 and creatinine of 1.51. Sodium was 128, corrected sodium of 134. Patient was given IV insulin 10 units, Zofran and IV fluids. Abdominal x-ray showed nonobstructive bowel gas pattern with moderate constipation. Past medical history; as above Surgical history; last colonoscopy in 2021; no polyps. Repeat in 2024. Family history; mother with diabetes, hypertension. Denies alcohol use, smoking. Uses marijuana Principal Diagnosis (1) Gastroenteritis: (2) Type 2 diabetes mellitus: (3) Constipation (4) Acute kidney injury superimposed on CKD: Discharge Exam Constitutional: WD/WN, vitals as above, NAD, sitting up in bed, pleasant, conversing easily Respiratory: normal respiratory effort, lungs clear to auscultation, no wheeze, rales, rhonchi. Normal insp/exp effort, no accessory muscle use Cardiovascular: RRR, no murmur, no edema Vessels: no JVD or carotid bruit Chest: normal inspection of chest Abdomen: Slightly distended, nontender. Bowel sounds are present Musculoskeletal: no cyanosis or clubbing, extremities motor strength 5/5 Skin: no rashes, warm and dry normal turgor Neurologic: PERRL, EOMI, accommodation nl, no face palsy, no dysarthria CN's II-XI intact bilaterally and moves all extremities Psychiatric: A+Ox3, euthymic affect Discharge Data Allergies Allergy/AdvReac Type Severity Reaction Status Date / Time lactose AdvReac Mild Nausea Verified 11/02/21 01:47 Consultations 11/02/22 07:33 ED Decision to Admit Stat Hospital Course (1) Gastroenteritis: (2) Type 2 diabetes mellitus: (3) Constipation: (4) Acute kidney injury superimposed on CKD: Plan Past medical history of type 2 diabetes mellitus (last A1c of 9.8% in May 2021), hypertension, chronic idiopathic constipation, gastroparesis, hemorrhoi ds. Noncompliant with medication Patient presents to the ED nausea and vomiting starting today. Patient reports that he made homemade brownies infused with marijuana and he started to have nausea, vomiting. Vomitus contained food particles; denies any blood. Lab work was remarkable for hyperglycemia with blood glucose of 462 and creatinine of 1.51. Sodium was 128, corrected sodium of 134. Abdominal x-ray showed nonobstructive bowel gas pattern with moderate constipation. He was admitted to medical floor. He was started on subcu insulin with NovoLog and Lantus. He was also given IV hydration for presumed IVON on CKD. Also, started on enema and MiraLAX. Patient's blood glucose improved during the hospitalization. HbA1c was 11.5. Diabetic education was done. Patient was discharged home on Tresiba 10 units once a day and Jardiance. Patient's creatinine was 1.51 at discharge; similar to admission. This is likely due to progressive CKD. Patient was asked to follow-up with his primary care doctor. Please note the above document was generated using voice recognition software. It may contain grammatical, syntax or spelling errors. Any formal questions or concerns about the content, text or information contained within the body of this dictation should be directly addressed to the provider for clarification Total Time Total Time Spent Total Time Spent (In Minutes): 45 Total Time Includes: Examination of the Patient, Discharge Planning, Medication Reconciliation, Communication With Other Providers and Other Discharge Plan Discharge Items Patient Disposition: Home - Self-Care Reason For Visit: HYPERGLYCEMIA, GASTROENTERITIS Discharge Diagnosis: Uncontrolled type 2 diabetes mellitus Gastroenteritis Activity: Resume your previous activity Non-emergency contact: Primary Care Provider Call non-emergency contact if: you have any medication questions and your symptoms worsen Follow-up/Referrals: Oswaldo Solis MD [Primary Care Provider] - (Date & Time 11/09/2022 10:20 AM Provider Oswaldo Solis MD Department [facility] ) Diet: Carb Consistent or DM2 Addtl Attending Provider Instructions: You are admitted to the hospital with uncontrolled type 2 diabetes mellitus. Your A1c was 11.5 You are prescribed Tresiba 10 units once a day. Please check fasting blood glucose every day in the morning. If your fasting blood glucose is greater than 130, please increase the dose of Tresiba by 2 units every 2 to 3 days. If your fasting blood glucose is less than 90, decrease dose of Tresiba by 2 units. You are also prescribed Jardiance 25 mg to be taken once daily. Please follow carb controlled diet. Please follow-up with your primary care doctor as scheduled. Pending Studies at Discharge: No Stand-Alone Forms: My [employer], Smoking Cessation Medications and DC Order Prescriptions: New Jardiance 25 mg tablet 25 mg PO DAILY Qty: 30 0RF (DME) pen needle, diabetic [Pen Needle] 32 gauge x 5/32" needle See Rx Instructions .Route Qty: 100 0RF Rx Instructions: As directed insulin degludec [Tresiba FlexTouch U-100] 100 unit/mL (3 mL) insulin pen 10 unit subcut DAILY Qty: 15 0RF Discharge Orders: Discharge Order (Routine); Ordered 11/03/22 Ordered By: Fili Luna/Other Patient Handouts: Insulin How To Use Where Inject Admission Data Admit Date/Time: 11/02/22 07:52 Attending Provider: Fili Ceballos Admit Provider: Fili Ceballos Primary Care Provider: Oswaldo Solis Other Providers: Fili Ceballos Other Interventions: Discharge Summary Assessment (RN) Last Done: 11/03/22 15:00
--- NOTE | 2022-11-04 06:12 | Electrocardiogram Report ---
Test Reason : Blood Pressure : / mmHG Vent. Rate : 054 BPM Atrial Rate : 054 BPM P-R Int : 166 ms QRS Dur : 092 ms QT Int : 512 ms P-R-T Axes : 071 076 089 degrees QTc Int : 485 ms Sinus bradycardia Nonspecific T wave abnormality Prolonged QT Abnormal ECG When compared with ECG of 02-NOV-2021 01:20, Nonspecific T wave abnormality, worse in Lateral leads Confirmed by Kyler Nice ([id number]) on 11/04/2022 6:12:39 AM Referred By: REFERRED SELF Confirmed By:Kyler Nice
== END 2022-11-03 16:03 | disposition home or self-care (01) ==
LOC: ED 04:52 → 3N 04:52
DX: K59.04 Chronic idiopathic constipation; T38.3X6A Underdosing of insulin and oral hypoglycemic [antidiabetic] drugs, initial encounter; K31.84 Gastroparesis; E11.22 Type 2 diabetes mellitus with diabetic chronic kidney disease; Z91.A4 Caregiver's other noncompliance with patient's medication regimen; E11.43 Type 2 diabetes mellitus with diabetic autonomic (poly)neuropathy; Z91.011 Allergy to milk products; F17.200 Nicotine dependence, unspecified, uncomplicated; E11.65 Type 2 diabetes mellitus with hyperglycemia; I12.9 Hypertensive chronic kidney disease with stage 1 through stage 4 chronic kidney disease, or unspecified chronic kidney disease; N17.9 Acute kidney failure, unspecified; Z20.822 Contact with and (suspected) exposure to COVID-19; K52.9 Noninfective gastroenteritis and colitis, unspecified; N18.9 Chronic kidney disease, unspecified

== ENCOUNTER 2023-01-03 17:57 | Inpatient (IN) ==
--- NOTE | 2023-01-03 18:33 | Emergency Department Note ---
Impression & Plan Suicidal ideation ED Provider Note NAME: ZENON AREVALO JR AGE: 52 SEX: M : 1970 ARRIVES VIA: Walk-In INFORMANT: Patient ED PROVIDER(S): Maikol Vargas DO CHIEF COMPLAINT: Suicidal ideations HPI: Patient is a 52-year-old male with a past medical history of diabetes, PT SD, depression, anxiety who presents the ER feeling very depressed. Symptoms started within the past several days as he recently saw his daughter who he was estranged from. He notes yesterday he was going to kill himself by overdosing but did not do it. He denies any headache or change in vision. No chest pain or shortness of breath. He notes he is a little less depressed today but came in as he wants to be admitted. He denies any dysuria, urgency, or frequency. No other exacerbating or remitting factors. He has not been taking any of his medications. He has also thought about shooting himself but notes he does not have encouraged to do that. PAST MEDICAL HISTORY:See Below PAST SURGICAL HISTORY:See Below FAMILY HISTORY:See Below SOCIAL HISTORY:See Below HOME MEDICATIONS:See Below ALLERGIES:See Below VITALS:See Below PHYSICAL EXAMINATION: GENERAL: Sitting up in bed, alert, well appearing, well nourished, no distress, non-toxic EYE EXAM: normal conjunctiva. OROPHARYNX: no exudate, no erythema, lips, buccal mucosa, and tongue normal and mucous membranes are moist NECK: supple, no nuchal rigidity, no adenopathy, non-tender LUNGS: Clear to auscultation. Normal chest wall mechanics HEART: no murmurs, S1 normal and S2 normal ABDOMEN: abdomen soft, non-tender, normo-active bowel sounds, no masses, no r ebound or guarding. UPPER EXTREMITIES: upper extremities are grossly normal. LOWER EXTREMITIES: No pitting edema. NEURO EXAM: Normal sensorium, cranial nerves II-XII grossly intact, normal speech, no gross weakness of arms, no gross weakness of legs. PSYCH: Admits to suicidal ideations with a plan to overdose on medications MEDICAL DECISION MAKING: Patient is a 52-year-old male who presents ER for the above-stated complaint. Blood work was obtained and external records were reviewed. Labs show no significant leukocytosis or anemia. BMP with a creatinine 1.6 fairly consistent with previous. Glucose slightly up at 230. LFTs bilirubin was unremarkable. TSH was normal. UA was clean. Marijuana and amphetamines were positive. Alcohol negative. COVID-negative. Patient was monitored in the ER for several hours awaiting evaluation by [facility] S. after evaluation by her psychiatric rn progressive care. Spoke with our psychiatric rn progressive care and they evaluated the p atient. They made the referral to [facility]. Still pending evaluation. Patient was signed out to Dr. Beverly pending evaluation. ED observation: The patient was placed in observation status at 1810. Psychiatric evaluation and medical stability. During the time in observation, the patient was frequently reassessed and received blood work and close monitoring and evaluation by her psychiatric rn progressive care. On Final reassessment the patient patient was resting comfortably and signed out to Dr. Beverly and the patient will be signed out to Dr. Beverly at 0040 at this time. A total observation time of 6 hours and 30 minutes Triage Nursing notes reviewed. Limited review of prior medical records performed Vital Signs: reviewed and remarkable for HTN Differential diagnosis: Mood disorder, infection, hypoglycemia, electrolyte abnormalities, cardiac sources, intracerebral event, toxicologic, trauma, neurologic, as well as other pathologies. ER treatment provided: See below Diagnostics interpreted by me include EKG and cardiac monitoring as listed below: -ECG: none -Laboratory studies:Interpreted by me as stated above in MDM and shown below. Imaging studies: Xrays: As interpreted by me:none CTs show: none Consultation(s): As described in MDM Procedures:none Critical Care: None Past Med/Surg History Medical History (Updated 01/04/23 @ 00:34 by Maikol Vargas DO) Cannabis abuse Depression Diabetes H. pylori infection HTN (hypertension) Hyperglycemia due to type 2 diabetes mellitus PTSD (post-traumatic stress disorder) Surgical History History of appendectomy Social History Smoking Status: Unknown if ever smoked Hx Alcohol Use: No Hx Substance Use: Yes Last Used Substance: Days (ago) Preferred Language: [place] Communication Ability: Effective Weekday Babysitter Required: No Beliefs That Will Affect Care: None Current Living Situation: Alone Feels Safe at Home: Yes Gender Identity: Male Assistive Devices: None Allergies Allergies Allergy/AdvReac Type Severity Reaction Status Date / Time lactose AdvReac Mild Nausea Verified 11/02/21 01:47 Home Meds Previous Rx's Medication Instructions Recorded empagliflozin 25 mg tablet 25 mg PO DAILY #30 tabs 11/03/22 (Jardiance) insulin degludec 100 unit/mL (3 10 unit (0.1 mL) subcut DAILY #15 11/03/22 mL) subcutaneous pen (Tresiba mL FlexTouch U-100 insulin) pen needle, diabetic 32 gauge x #100 ea 11/03/22" (Pen Needle) Results & Data (ED) Vital Signs Vital Signs - 24 hr 01/03/23 18:02 01/03/23 19:16 01/03/23 23:52 Temperature 36.6 C 36.5 C 36.5 C Temperature Source Temporal Artery Scan Oral Oral Pulse Rate 87 Pulse Rate [Right Finger] 67 51 L Pulse Rhythm [Right Finger] Regular Pulse Strength [Right Finger] Normal Respiratory Rate 18 18 18 Respiratory Effort / Characteristics Non-Labored Non-Labored Respiratory Depth Normal Normal Respiratory Pattern Regular Blood Pressure 151/106 H Blood Pressure [Right Arm] 145/80 H 138/84 Blood Pressure Mean 121 Blood Pressure Mean [Right Arm] 101 102 Blood Pressure Position [Right Arm] Lying Semi-fowlers Pulse Oximetry 99 98 96 Oxygen Delivery Method Room Air Room Air Room Air Sepsis Recent Fever Within 48 Hours No Sepsis New/Unexplained Change in Mental Status No Sepsis Action Taken by Nursing No Action Required Laboratory Data 01/03/23 19:25 01/03/23 19:25 Lab Results 01/03/23 01/03/23 01/03/23 Range/Units 18:19 19:17 19:17 WBC (4.8-10.8) K/ul RBC (4.70-6.10) M/uL Hgb (14.0-18.0) g/dl Hct (42.0-52.0) % MCV (80.0-100.0) fL MCH (25.0-34.0) pg MCHC (32.0-36.0) g/dL RDW Std Deviation (36.4-46.3) fL RDW Coeff of Gertrudis (11.5-14.5) % Plt Count (130-400) K/uL MPV (9.4-12.4) fL Immature Gran % (Auto) % Neut % (Auto) % Lymph % (Auto) % [place] % (Auto) % Eos % (Auto) % Baso % (Auto) % Neut # (Auto) (1.40-6.50) K/uL Lymph # (Auto) (1.20-3.40) K/uL [place] # (Auto) (0.11-0.59) K/uL Eos # (Auto) (0.00-0.50) K/uL Baso # (Auto) (0.00-0.20) K/uL Immature Gran # (Auto) (0.01-0.20) K/uL Sodium (136-145) mmol/L Potassium (3.5-5.1) mmol/L Chloride (98-107) mmol/L Carbon Dioxide (21-32) mmol/L Anion Gap (3-11) BUN (6-23) mg/dl Creatinine (0.6-1.4) mg/dl Est Cr Clr Drug Dosing Est GFR ( Amer) ml/min Est GFR (Non-Af Amer) ml/min BUN/Creatinine Ratio (10-20) Glucose (70-99(Fasting)) mg/dl POC Glucose 234 H (70-99) mg/dl Calcium (8.6-10.3) mg/dl Total Bilirubin (0.2-1.0) mg/dl AST (13-39) U/L ALT (7-52) U/L Alkaline Phosphatase (34-104) U/L Total Protein (6.0-8.3) gm/dl Albumin (3.4-5.0) gm/dl Globulin (2.5-4.0) gm/dl Albumin/Globulin Ratio (0.9-2) TSH (0.300-4.500) uIu/ml Urine Color Yellow Urine Appearance Clear (Clear) Urine pH 6.5 (4.5-7.5) Ur Specific [place] 1.015 (1.000-1.030) Urine Protein Negative (Negative) Urine Glucose (UA) Trace H (Negative) Urine Ketones Negative (Negative) Urine Blood Negative (Negative) Urine Nitrite Negative (Negative) Urine Bilirubin Negative (Negative) Urine Urobilinogen Negative (Negative) Ur Leukocyte Esterase Negative (Negative) Salicylates (3.0-30) mg/dl Urine Opiates Screen Neg (Neg) Ur Methadone, Qual Neg (Neg) Acetaminophen (10-30) ug/ml Urine Barbiturates Neg (Neg) Ur Phencyclidine (PCP) Neg (Neg) U Amphetamin/Meth Scrn Pos H (Neg) MDMA (Ecstasy) Screen Neg (Neg) U Benzodiazepines Scrn Neg (Neg) Ur Cocaine Metabolite Neg (Neg) U Marijuana (THC) Screen Pos H (Neg) Ethyl Alcohol mg/dL (<10.0) mg/dl SARS-CoV-2, RNA, NAAT (NEGATIVE) 01/03/23 01/03/23 01/03/23 Range/Units 19:25 19:25 19:25 WBC 5.25 (4.8-10.8) K/ul RBC 4.32 L (4.70-6.10) M/uL Hgb 12.8 L (14.0-18.0) g/dl Hct 36.4 L (42.0-52.0) % MCV 84.3 (80.0-100.0) fL MCH 29.6 (25.0-34.0) pg MCHC 35.2 (32.0-36.0) g/dL RDW Std Deviation 38.6 (36.4-46.3) fL RDW Coeff of Gertrudis 12.5 (11.5-14.5) % Plt Count 309 (130-400) K/uL MPV 9.7 (9.4-12.4) fL Immature Gran % (Auto) 0.2 % Neut % (Auto) 50.8 % Lymph % (Auto) 40.0 % [place] % (Auto) 6.7 % Eos % (Auto) 1.7 % Baso % (Auto) 0.6 % Neut # (Auto) 2.67 (1.40-6.50) K/uL Lymph # (Auto) 2.10 (1.20-3.40) K/uL [place] # (Auto) 0.35 (0.11-0.59) K/uL Eos # (Auto) 0.09 (0.00-0.50) K/uL Baso # (Auto) 0.03 (0.00-0.20) K/uL Immature Gran # (Auto) 0.01 (0.01-0.20) K/uL Sodium 137 (136-145) mmol/L Potassium 3.9 (3.5-5.1) mmol/L Chloride 99 (98-107) mmol/L Carbon Dioxide 31 (21-32) mmol/L Anion Gap 7 (3-11) BUN 31 H (6-23) mg/dl Creatinine 1.64 H (0.6-1.4) mg/dl Est Cr Clr Drug Dosing Not Reportable Est GFR ( Amer) 54.5 ml/min Est GFR (Non-Af Amer) 47.0 ml/min BUN/Creatinine Ratio 18.9 (10-20) Glucose 127 H (70-99(Fasting)) mg/dl POC Glucose (70-99) mg/dl Calcium 9.6 (8.6-10.3) mg/dl Total Bilirubin 0.7 (0.2-1.0) mg/dl AST 27 (13-39) U/L ALT 21 (7-52) U/L Alkaline Phosphatase 98 (34-104) U/L Total Protein 6.9 (6.0-8.3) gm/dl Albumin 4.2 (3.4-5.0) gm/dl Globulin 2.7 (2.5-4.0) gm/dl Albumin/Globulin Ratio 1.6 (0.9-2) TSH 0.409 (0.300-4.500) uIu/ml Urine Color Urine Appearance (Clear) Urine pH (4.5-7.5) Ur Specific [place] (1.000-1.030) Urine Protein (Negative) Urine Glucose (UA) (Negative) Urine Ketones (Negative) Urine Blood (Negative) Urine Nitrite (Negative) Urine Bilirubin (Negative) Urine Urobilinogen (Negative) Ur Leukocyte Esterase (Negative) Salicylates (3.0-30) mg/dl Urine Opiates Screen (Neg) Ur Methadone, Qual (Neg) Acetaminophen (10-30) ug/ml Urine Barbiturates (Neg) Ur Phencyclidine (PCP) (Neg) U Amphetamin/Meth Scrn (Neg) MDMA (Ecstasy) Screen (Neg) U Benzodiazepines Scrn (Neg) Ur Cocaine Metabolite (Neg) U Marijuana (THC) Screen (Neg) Ethyl Alcohol mg/dL (<10.0) mg/dl SARS-CoV-2, RNA, NAAT (NEGATIVE) 01/03/23 01/03/23 01/03/23 Range/Units 19:25 19:25 19:28 WBC (4.8-10.8) K/ul RBC (4.70-6.10) M/uL Hgb (14.0-18.0) g/dl Hct (42.0-52.0) % MCV (80.0-100.0) fL MCH (25.0-34.0) pg MCHC (32.0-36.0) g/dL RDW Std Deviation (36.4-46.3) fL RDW Coeff of Gertrudis (11.5-14.5) % Plt Count (130-400) K/uL MPV (9.4-12.4) fL Immature Gran % (Auto) % Neut % (Auto) % Lymph % (Auto) % [place] % (Auto) % Eos % (Auto) % Baso % (Auto) % Neut # (Auto) (1.40-6.50) K/uL Lymph # (Auto) (1.20-3.40) K/uL [place] # (Auto) (0.11-0.59) K/uL Eos # (Auto) (0.00-0.50) K/uL Baso # (Auto) (0.00-0.20) K/uL Immature Gran # (Auto) (0.01-0.20) K/uL Sodium (136-145) mmol/L Potassium (3.5-5.1) mmol/L Chloride (98-107) mmol/L Carbon Dioxide (21-32) mmol/L Anion Gap (3-11) BUN (6-23) mg/dl Creatinine (0.6-1.4) mg/dl Est Cr Clr Drug Dosing Est GFR ( Amer) ml/min Est GFR (Non-Af Amer) ml/min BUN/Creatinine Ratio (10-20) Glucose (70-99(Fasting)) mg/dl POC Glucose (70-99) mg/dl Calcium (8.6-10.3) mg/dl Total Bilirubin (0.2-1.0) mg/dl AST (13-39) U/L ALT (7-52) U/L Alkaline Phosphatase (34-104) U/L Total Protein (6.0-8.3) gm/dl Albumin (3.4-5.0) gm/dl Globulin (2.5-4.0) gm/dl Albumin/Globulin Ratio (0.9-2) TSH (0.300-4.500) uIu/ml Urine Color Urine Appearance (Clear) Urine pH (4.5-7.5) Ur Specific [place] (1.000-1.030) Urine Protein (Negative) Urine Glucose (UA) (Negative) Urine Ketones (Negative) Urine Blood (Negative) Urine Nitrite (Negative) Urine Bilirubin (Negative) Urine Urobilinogen (Negative) Ur Leukocyte Esterase (Negative) Salicylates < 3.0 L (3.0-30) mg/dl Urine Opiates Screen (Neg) Ur Methadone, Qual (Neg) Acetaminophen < 3 L (10-30) ug/ml Urine Barbiturates (Neg) Ur Phencyclidine (PCP) (Neg) U Amphetamin/Meth Scrn (Neg) MDMA (Ecstasy) Screen (Neg) U Benzodiazepines Scrn (Neg) Ur Cocaine Metabolite (Neg) U Marijuana (THC) Screen (Neg) Ethyl Alcohol mg/dL < 10.0 (<10.0) mg/dl SARS-CoV-2, RNA, NAAT NEGATIVE (NEGATIVE) Discharge Plan Visit Data Chief Complaint: Mental Health Evaluation Stated Complaint: MENTAL EVAL ED Provider: Maikol Vargas Discharge Problem: Suicidal ideation Forms Stand Alone Forms: My [facility], Suicide Prevention Resources Prescriptions Prescriptions: No Action Jardiance 25 mg tablet 25 mg PO DAILY Qty: 30 0RF (DME) pen needle, diabetic [Pen Needle] 32 gauge x 5/32" needle See Rx Instructions .Route Qty: 100 0RF Rx Instructions: As directed insulin degludec [Tresiba FlexTouch U-100] 100 unit/mL (3 mL) insulin pen 10 unit subcut DAILY Qty: 15 0RF Referrals Referrals: Oswaldo Solis MD [Primary Care Provider] -
[2023-01-03 19:31] LABS: Appearance Urine Clear (Clear); Bilirubin Urine Negative (Negative); Blood Urine Negative (Negative); Color Urine Yellow; Glucose Urine UA Trace (Negative); Ketones Urine Negative (Negative); Leukocyte Esterase Urine Negative (Negative); Nitrite Urine Negative (Negative); Protein Urine Negative (Negative); Specific Gravity Urine 1.015 (1.000-1.030); Urobilinogen Urine Negative (Negative); pH Urine 6.5 (4.5-7.5)
[2023-01-03 19:52] LABS: Basophils # (auto) 0.03 K/uL (0.00-0.20); Basophils % (auto) 0.6 %; Eosinophils # (auto) 0.09 K/uL (0.00-0.50); Eosinophils % (auto) 1.7 %; Hematocrit (blood only) 36.4 % (42.0-52.0); Hemoglobin 12.8 g/dl (14.0-18.0); Immature Granulocytes # (auto) 0.01 K/uL (0.01-0.20); Immature Granulocytes % (auto) 0.2 %; Mean Corpuscular Hemoglobin 29.6 pg (25.0-34.0); Mean Corpuscular Hgb Conc 35.2 g/dL (32.0-36.0); Mean Corpuscular Volume 84.3 fL (80.0-100.0); Mean Platelet Volume 9.7 fL (9.4-12.4); Monocytes # (auto) 0.35 K/uL (0.11-0.59); Monocytes % (auto) 6.7 %; Neutrophils # (auto) 2.67 K/uL (1.40-6.50); Neutrophils % (auto) 50.8 %; Platelet Count 309 K/uL (130-400); RDW Coefficient of Variation 12.5 % (11.5-14.5); RDW Standard Deviation 38.6 fL (36.4-46.3); Red Blood Count 4.32 M/uL (4.70-6.10); White Blood Count 5.25 K/ul (4.8-10.8)
[2023-01-03 20:08] LABS: Albumin Level 4.2 gm/dl (3.4-5.0); Anion Gap 7 (3-11); Bilirubin,Total 0.7 mg/dl (0.2-1.0); Calcium 9.6 mg/dl (8.6-10.3); Carbon Dioxide 31 mmol/L (21-32); Chloride 99 mmol/L (98-107); Potassium 3.9 mmol/L (3.5-5.1); Sodium 137 mmol/L (136-145)
[2023-01-03 20:13] LABS: Acetaminophen < 3 ug/ml (10-30); Salicylate < 3.0 mg/dl (3.0-30)
[2023-01-03 20:14] LABS: Amphetamines+Metham, Urine Pos (Neg); Barbiturates, Urine Neg (Neg); Benzodiazepine, Urine Neg (Neg); Cocaine, Urine Neg (Neg); MDMA (Ecstacy), Urine Neg (Neg); Methadone, Urine Neg (Neg); Opiate, Urine Neg (Neg); Phencyclidine, Urine Neg (Neg)
[2023-01-03 20:14] LABS: Alanine Aminotransferase 21 U/L (7-52); Albumin Globulin Ratio 1.6 (0.9-2); Alkaline Phosphatase 98 U/L (34-104); Aspartate Aminotransferase 27 U/L (13-39); BUN Creatinine Ratio 18.9 (10-20); Blood Urea Nitrogen 31 mg/dl (6-23); Est GFR (African American) 54.5 ml/min; Globulin 2.7 gm/dl (2.5-4.0); Glucose 127 mg/dl (70-99(Fasting)); Total Protein 6.9 gm/dl (6.0-8.3)
[2023-01-04] MEDS ORDERED: INSULIN ASPART PER UNIT CHARGE SC SCH (00:30)
[2023-01-04] MEDS ORDERED: DEXTROSE 50% 50 ML SYRINGE IV PRN ×2 (00:45→09:45)
[2023-01-04] MEDS ORDERED: GLUCOSE 10 TAB/TUBE PO PRN ×2 (00:45→09:45)
[2023-01-04] MEDS ORDERED: GLUCOSE 40% GEL 15 GM TUBE PO PRN ×2 (00:45→09:45)
[2023-01-04] MEDS ORDERED: GLUCAGON FOR INJ 1 MG VIAL IM PRN ×2 (00:45→09:45)
[2023-01-04] MEDS ORDERED: CARBOHYDRATES FOR HYPOGLYCEMIA PO PRN ×2 (00:45→09:45)
[2023-01-04] MEDS ORDERED: hydrOXYzine HCl 25 MG TAB PO PRN ×2 (01:25)
[2023-01-04] MEDS ORDERED: ALUMINUM/MAGNESIUM SUSP 30 ML UDC PO PRN (01:25)
[2023-01-04] MEDS ORDERED: MAGNESIUM HYDROXIDE SUSP 30 ML UDC PO PRN (01:25)
[2023-01-04] MEDS ORDERED: ACETAMINOPHEN 325 MG TAB PO PRN (01:25)
[2023-01-04] MEDS ORDERED: SODIUM CHLORIDE 0.65% NA SOLN 45 ML (OCEAN) PRN (01:25)
[2023-01-04] MEDS ORDERED: BISMUTH SUBSALICYLATE LIQD 236 ML PO PRN (01:25)
--- NOTE | 2023-01-04 01:31 | Emergency Department Note ---
ED Visit Note The patient was taken in signout from Dr. Vargas at the change of shift. Please see that note for details. The patient was pending bed placement for inpatient psychiatric treatment. Bed search is pending. In brief, the patient is a 52-year-old gentleman who presented to the emergency department with suicidal with plan to overdose. The patient was medically cleared. He is interested in voluntary admission and so bed search is in progress. Patient was accepted to [facility]. 201 signed. .
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
[2023-01-04] MEDS ORDERED: PHARMACY GLYCEMIC MGMT CONSULT PRN (09:21)
--- NOTE | 2023-01-04 09:44 | Pharmacy Report ---
Pharmacy Glycemic Short Note 2 - Date of Service January 04, 2023 - Glycemic Short BSG Results (Last 24 hours): 01/03/23 01/03/23 01/04/23 18:19 19:25 00:57 Glucose 127 H POC Glucose 234 H 232 H 01/04/23 08:35 Glucose POC Glucose 194 H OUTPATIENT ANTIDIABETIC REGIMEN: * Tresiba 10 units daily, Jardiance 25 mg po daily ASSESSMENT: * 52 year old male admitted to [facility]. PMHx significant for diabetes, PTSD, depression, anxiety. Patient previously admitted 10/2022. Pharmacy consulted for glycemic management. During last admission, basal insulin added to discharge medications. Provider notes state patient has not been taking any of his medications. A1c 10/2022 was ~11.5% * Plan to resume home basal insulin this AM, diet ordered - will start stress of 2 novolog PLAN FOR INPATIENT GLYCEMIC CONTROL: * Hold outpatient oral diabetes medications * Basal insulin * Lantus 10 units daily * Bolus insulin * NovoLog per scale ACHS or Q6hrs while NPO * Goal Range: Low 110 mg/dL - High 140 mg/dL * Correction Factor: 35 mg/dL/unit * Nutritional / Prandial insulin per carb ratio of 1 unit per 12 grams CHO consumed
[2023-01-04] MEDS: INSULIN ASPART PER UNIT CHARGE SC SCH ×4 (10:11→21:20)
[2023-01-04] MEDS: LANTUS PER UNIT CHARGE SC SCH (10:12)
[2023-01-04] MEDS: SERTRALINE HCL 50 MG TABLET PO SCH (14:46)
[2023-01-04] MEDS ORDERED: metFORMIN HCL ER 500 MG TABCR PO SCH (21:00)
[2023-01-05] MEDS ORDERED: EMPAGLIFLOZIN 25 MG TAB PO SCH (09:00)
[2023-01-05] MEDS: SERTRALINE HCL 50 MG TABLET PO SCH (09:04)
[2023-01-05] MEDS: lisinopril 10 MG TAB PO SCH (09:04)
[2023-01-05] MEDS: LANTUS PER UNIT CHARGE SC SCH (09:12)
[2023-01-05] MEDS: INSULIN ASPART PER UNIT CHARGE SC SCH ×4 (09:13→20:57)
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
[2023-01-06] MEDS: LANTUS PER UNIT CHARGE SC SCH (09:40)
[2023-01-06] MEDS: INSULIN ASPART PER UNIT CHARGE SC SCH ×4 (09:40→21:15)
[2023-01-06] MEDS: lisinopril 10 MG TAB PO SCH (09:41)
--- NOTE | 2023-01-06 12:59 | Pharmacy Report ---
Pharmacy Glycemic Short Note 2 - Date of Service January 06, 2023 - Glycemic Short BSG Results (Last 24 hours): 01/05/23 01/05/23 01/06/23 17:20 20:52 08:54 POC Glucose 169 H 207 H 103 H 01/06/23 12:34 POC Glucose 163 H OUTPATIENT ANTIDIABETIC REGIMEN: * Tresiba 10 units daily, Jardiance 25 mg po daily HbA1c: 11.5% (11/03/22) ASSESSMENT: 01/06/23: * BSGs labile over past 48 hours, ranging 69-241 mg/dL w/ fasting BSG of 103 mg/dL this morning * Given up-trend throughout the day yesterday, will tighten carb coverage * Continue current basal 01/04/23: * 52 year old male admitted to [facility]. PMHx significant for diabetes, PTSD, depression, anxiety. Patient previously admitted 10/2022. Pharmacy consulted for glycemic management. During last admission, basal insulin added to discharge medications. Provider notes state patient has not been taking any of his medications. A1c 10/2022 was ~11.5% * Plan to resume home basal insulin this AM, diet ordered - will start stress of 2 novolog PLAN FOR INPATIENT GLYCEMIC CONTROL: * Hold outpatient oral diabetes medications * Basal insulin * Lantus 10 units daily * Bolus insulin * NovoLog per scale ACHS or Q6hrs while NPO * Goal Range: Low 110 mg/dL - High 140 mg/dL * Correction Factor: 35 mg/dL/unit * Nutritional / Prandial insulin per carb ratio of 1 unit per 15 grams CHO consumed
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
[2023-01-06] MEDS ORDERED: SERTRALINE HCL 50 MG TABLET PO SCH (22:00)
[2023-01-07 07:17] LABS: Amphetamine Urine, Confirm 845 ng/mL (<250); Marijuana Quant, GCMS Urine 25 ng/mL (<5); Methamphetamine, Ur Confirm 9801 ng/mL (<250)
[2023-01-07] MEDS ORDERED: LANTUS PER UNIT CHARGE SC SCH (09:30)
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
[2023-01-07] MEDS: INSULIN ASPART PER UNIT CHARGE SC SCH ×2 (09:48→13:17)
[2023-01-07] MEDS: lisinopril 10 MG TAB PO SCH (09:49)
[2023-01-07] MEDS: LANTUS PER UNIT CHARGE SC SCH (09:53)
[2023-01-07] MEDS ORDERED: SERTRALINE HCL 50 MG TABLET PO ONE (13:47)
== END 2023-01-07 13:52 | disposition home or self-care (01) | DRG 885 ==
LOC: ED 17:57 → 3S 01-04 01:25 → SUATTDRO 01-04 01:25 → 3S 01-04 01:57